=== PATIENT | male | born 1960 | race Two or more races ===

== ENCOUNTER 2016-08-08 18:10 | Emergency (ER) | payer OTHER ==
[~2016-08-08] VITALS: Ht 165.1 cm; Wt 85.7 kg
[2016-08-08 19:16] LABS: BASOPHIL % 0.4 % (0-2); PLATELET COUNT 353 x10^3mcL (130-400); RED CELL DISTRIBUTION WIDTH 12.3 % (11.5-14.5)
[2016-08-08 19:25] LABS: CALCIUM 9.4 mg/dL (8.5-10.1); CARBON DIOXIDE 30.4 mmol/L (21-32); CREATININE SERUM 1.4 mg/dL (0.7-1.3); POTASSIUM SERUM 3.7 mmol/L (3.5-5.1)
[2016-08-08 19:40] LABS: ALBUMIN 3.7 g/dL (3.4-5.0); BILIRUBIN TOTAL 0.55 mg/dL (0.20-1.00); TOTAL PROTEIN, SERUM 7.6 g/dL (6.4-8.2)
[2016-08-08 19:41] LABS: UA SPECIFIC GRAVITY >=1.030 (1.005-1.035); microscopic required? YES; urine erythrocyte 3+ (NEGATIVE)
[2016-08-08 20:26] VITALS: BP 147/88
== END 2016-08-08 20:26 | disposition home or self-care (01) ==
LOC: ED 18:10
PROVIDERS: Emergency Medicine
DX: R10.9 Unspecified abdominal pain (principal); R11.10 Vomiting, unspecified
CPT/HCPCS: 83880; J1885; J7030